=== PATIENT | female | born 1950 | race Caucasian/White ===

== ENCOUNTER → 2018-05-07 08:51 | Outpatient (CLI) | payer MEDICARE, OTHER, SELFPAY ==
[2018-05-07 09:00] LABS: Bacteria Urine None Seen; RBC Urine None Seen (0-5/HPF); WBC Urine None Seen (0-5/HPF)
[2018-05-07 10:02] LABS: Add Manual Diff / Slide Review NO; Basophils Absolute Auto 100 /uL (0-100); Basophils Percent Auto 1.1 % (0-2); Eosinophils Absolute Auto 200 /uL (0-450); Eosinophils Percent Auto 3.5 % (2-4); Hematocrit 39.4 % (36-46); Hemoglobin 12.8 g/dL (12.0-16.0); Lymphocytes Absolute Auto 1500 /uL (1100-4500); Lymphocytes Percent Auto 24.2 % (25-40); Mean Corpuscular HGB Conc 32.5 % (30-36); Mean Corpuscular Hemoglobin 29.1 PG (26-34); Mean Corpuscular Volume 89.6 fL (80-100); Monocytes Absolute Auto 700 /uL (0-900); Monocytes Percent Auto 10.9 % (3-14); Neutrophils Absolute Auto 3700 /uL (1500-7000); Neutrophils Percent Auto 60.3 % (50-75); Platelet Count 266 X10^3/uL (150-400); Red Cell Distribution Width 13.4 % (11.6-14.8); White Blood Cell Count 6.1 X10^3/uL (4.5-11.0)
[2018-05-07 10:18] LABS: Alanine Aminotransferase 28 IU/L (9-52); Albumin 4.5 g/dL (3.5-5.0); Albumin Globulin Ratio 1.5 (1.0-2.8); Alkaline Phosphatase 70 U/L (38-126); Aspartate Aminotransferase 26 IU/L (14-36); BUN Creatinine Ratio 28.3 (6-22); Bilirubin Total 0.4 mg/dL (0.2-1.3); Blood Urea Nitrogen 17 mg/dL (7-17); Calcium 9.7 mg/dL (8.4-10.2); Carbon Dioxide 31 mmol/L (22-32); Chloride 98 mmol/L (98-107); Estimated Glomerular Filt Rate > 60.0 mL/min (>60); Glucose 91 mg/dL (80-110); HEMOLYSIS < 15 (0-50); Potassium 5.1 mmol/L (3.4-5.1); Sodium 137 mmol/L (137-145); Total Protein 7.5 g/dL (6.3-8.2)
[2018-05-07 10:20] LABS: C-Reactive Protein Quant < 0.5 mg/dL (<1.0)
[2018-05-07 10:22] LABS: Appearance Urine UA CLEAR; Bilirubin Urine UA NEGATIVE (NEGATIVE); Color Urine UA YELLOW; Glucose Urine UA NEGATIVE (Negative); Ketones Urine UA NEGATIVE (NEGATIVE); Leukocyte Esterase Urine UA NEGATIVE (NEGATIVE); Nitrite Urine UA NEGATIVE (Negative); Occult Blood Urine UA NEGATIVE (Negative); Protein Urine UA NEGATIVE (Negative); Specific Gravity Urine UA <=1.005 (1.000-1.035); Urobilinogen Urine UA 0.2 E.U./dL (0.2); pH Urine UA 6.5 (4.5-8.0)
[2018-05-07 11:14] LABS: Culture Indicated Urine Cult Not Indicated
[2018-05-07 11:20] LABS: Folate > 20.0 ng/mL (2.76-20.0); Vitamin B12 713 pg/mL (239-931)
== END ==
PROVIDERS: PCP Family Medicine; Visit Provider Family Medicine
DX: K50.90 Crohn's disease, unspecified, without complications (principal)
CPT/HCPCS: 36415; 80053; 81001; 82607; 82746; 85025; 86140

== ENCOUNTER → 2019-04-26 08:59 | Outpatient (CLI) | payer MEDICARE, OTHER, SELFPAY ==
[2019-04-26 09:59] LABS: Add Manual Diff / Slide Review NO; Basophils Absolute Auto 100 /uL (0-100); Basophils Percent Auto 1.2 % (0-2); Eosinophils Absolute Auto 100 /uL (0-450); Eosinophils Percent Auto 1.2 % (2-4); Hematocrit 39.3 % (36-46); Hemoglobin 13.3 g/dL (12.0-16.0); Lymphocytes Absolute Auto 1500 /uL (1100-4500); Mean Corpuscular HGB Conc 33.9 % (30-36); Mean Corpuscular Hemoglobin 30.3 PG (26-34); Mean Corpuscular Volume 89.6 fL (80-100); Monocytes Absolute Auto 500 /uL (0-900); Monocytes Percent Auto 7.9 % (3-14); Neutrophils Absolute Auto 4400 /uL (1500-7000); Neutrophils Percent Auto 66.7 % (50-75); Platelet Count 314 X10^3/uL (150-400); Red Blood Cell Count 4.39 X10^6/uL (4.0-5.2); Red Cell Distribution Width 13.3 % (11.6-14.8); White Blood Cell Count 6.6 X10^3/uL (4.5-11.0)
[2019-04-26 10:13] LABS: Alanine Aminotransferase 22 IU/L (<35); Albumin 5.1 g/dL (3.5-5.0); Albumin Globulin Ratio 1.8 (1.0-2.8); Alkaline Phosphatase 82 U/L (38-126); Aspartate Aminotransferase 31 IU/L (14-36); BUN Creatinine Ratio 26.7 (6-22); Bilirubin Total 0.6 mg/dL (0.2-1.3); Blood Urea Nitrogen 16 mg/dL (7-17); C-Reactive Protein Quant 0.7 mg/dL (<1.0); Calcium 10.2 mg/dL (8.4-10.2); Carbon Dioxide 28 mmol/L (22-32); Chloride 96 mmol/L (98-107); Estimated Glomerular Filt Rate > 60.0 mL/min (>60); Globulin 2.9 g/dL (1.7-4.1); Glucose 106 mg/dL (80-110); HEMOLYSIS < 15 (0-50); Potassium 4.3 mmol/L (3.4-5.1); Sodium 137 mmol/L (137-145)
[2019-04-26 10:53] LABS: Hep C Virus Ab w/Reflex Quant NEGATIVE s/c (NEGATIVE)
[2019-04-26 11:16] LABS: Folate > 20.0 ng/mL (2.76-20.0); Vitamin B12 912 pg/mL (239-931)
== END ==
PROVIDERS: PCP Family Medicine; Visit Provider Internal Medicine Gastroenterology
DX: K50.80 Crohn's disease of both small and large intestine without complications (principal); K22.70 Barrett's esophagus without dysplasia
CPT/HCPCS: 36415; 80053; 82607; 82746; 85025; 86140; 86803

== ENCOUNTER → 2020-01-29 14:04 | Outpatient (CLI) | payer MEDICARE, OTHER, SELFPAY ==
[2020-01-30 14:49] LABS: COVID19 Sendout Not Detected (Not Detect)
== END ==
PROVIDERS: PCP Family Medicine; Visit Provider Physician Assistant
DX: Z01.812 Encounter for preprocedural laboratory examination (principal)
CPT/HCPCS: 87635

== ENCOUNTER 2020-02-01 12:55 | Day surgery (SDC) | payer MEDICARE, OTHER, SELFPAY ==
--- NOTE | 2020-02-01 | PATH_ITS ---
[facility] Accession Number: [id number] . 01 Material submitted: . PART A: gastrointestinal site - GASTRIC POLYP PART B: esophagus - ESOPHAGITIS PART C: ileum - TERMINAL ILEUM PART D: colon - CECUM PART E: colon - CECAL POLYP PART F: colon - ASCENDING COLON PART G: colon - TRANSVERSE COLON PART H: colon - LEFT COLON PART I: rectum - RECTAL . 01 Clinical history: . B: RULE OUT SUZAN . 02 Diagnosis: A. Gastric Polyp, Biopsy: Consistent with fundic gland polyp with mild chronic inflammation. Negative for Helicobacter organisms by immunohistochemistry. Negative for intestinal metaplasia. Negative for dysplasia or malignancy. Additional step sections examined. . B. Esophagus, Biopsy: Suzan esophagitis. Fungal forms morphologically consistent with Suzan species seen on H/E stain. Negative for dysplasia or malignancy. . C. Terminal Ileum, Biopsy: Small bowel mucosa with no diagnostic abnormality. Negative for active inflammation, granulomata, dysplasia or malignancy. . D. Cecum, Biopsy: Colonic mucosa with no significant diagnostic abnormality. Negative for active inflammation, granulomas, dysplasia, and malignancy. . E. Cecum, Polyp: Small serrated lesion, consistent with early sessile serrated adenoma. . F-I: Ascending, Transverse, and Left Colon, Rectum, Biopsies: Colonic mucosa with no significant diagnostic abnormality. Negative for active inflammation, granulomas, dysplasia, and malignancy. . . . . . . [facility] 02/06/2020 1544 Local . 02 Electronically signed: . Romel Pat MD, PhD, Pathologist NPI- [id number] . 01 Gross description: . A. Received in formalin, labeled gastric polyp, and consists of two carpenter fragments of soft tissue measuring 0.2 x 0.2 x 0.2 cm in aggregate. The specimen is entirely submitted in cassette A1. B. Received in formalin, labeled esophagitis, and consists of three carpenter-white fragments of soft tissue measuring 0.4 x 0.3 x 0.2 cm in aggregate. The specimen is entirely submitted in cassette B1. C. Received in formalin, labeled terminal ileum, and consists of three carpenter fragments of soft tissue measuring 0.4 x 0.3 x 0.2 cm in aggregate. The specimen is entirely submitted in cassette C1. D. Received in formalin, labeled cecum, and consists of four carpenter fragments of soft tissue measuring 0.6 x 0.5 x 0.2 cm in aggregate. The specimen is entirely submitted in cassette D1. E. Received in formalin, labeled cecal polyp, and consists of a 0.6 x 0.3 x 0.2 cm carpenter fragment of soft tissue, which is entirely submitted in cassette E1. F. Received in formalin, labeled ascending colon, and consists of five carpenter fragments of soft tissue measuring 0.6 x 0.5 x 0.2 cm in aggregate. The specimen is entirely submitted in cassette F1. G. Received in formalin, labeled transverse colon, and consists of multiple carpenter fragments of soft tissue measuring 1.0 x 0.8 x 0.2 cm in aggregate. The specimen is entirely submitted in cassette G1. H. Received in formalin, labeled left colon, and consists of multiple carpenter-pink fragments of soft tissue measuring 1.5 x 1.0 x 0.2 cm in aggregate. The specimen is entirely submitted in cassette H1. I. Received in formalin, labeled rectal, and consists of four carpenter fragments of soft tissue measuring 1.2 x 1.0 x 0.2 cm in aggregate. The specimen is entirely submitted in cassette I1. (EA:[id number]) /MRV 02/02/2020 [facility] Local . 02 Microscopic: . A. An immunohistochemical stain was performed to evaluate for Helicobacter organisms and is negative. The control stain showed appropriate reactivity. . * This test was developed and its performance characteristics determined by [facility]. It has not been cleared or approved by the U.S. Food and Drug Administration. The FDA has determined that such clearance or approval is not necessary. This test is used for clinical purposes. It should not be regarded as investigational or for research. . 02 Pathologist provided ICD-10: K31.7, B37.81, K29.70, D12.0, R19.4 . 02 CPT . 433391, 152105, 925912, 742324, 662938, 489622, 427733, 398257, 210245, D86980 Performed at: 01 [facility] [address] [address] [id number] MD Kenn Scales MD Phone: [phone] Performed at: 02 [facility] [place] [address] [place] [id number] MD Stacey Barrera MD Phone: [phone]
--- NOTE | 2020-02-01 09:00 | PM.HP.1 ---
History of Present Illness History of Present Illness Date Patient Seen: 02/01/20 Chief complaint: SDC Narrative: 69-year-old female with a history of Crohn's ileocolitis and Lynch's esophagus who I had last seen on 01/25/2020 who is due for colon cancer surveillance and Lynch's esophagus surveillance Patient History Surgical History (Updated 08/18/17 @ 05:45 by Conversion Provider) History of carpal tunnel repair History of carpal tunnel repair Family & Social History Family History (Updated 10/30/14 @ 00:00 by Conversion Provider) Brother Age: 71 Hypertension Brother Age: 69 Ulcerative colitis Mother Hypertension Meds Home Medications and Allergies Home Medications Medication Instructions Recorded Confirmed Type lisinopril-hydrochlorothiazide 1 tab PO QDAY #90 tab 05/09/16 02/01/20 Rx sulfasalazine 1 g PO BID 02/01/20 02/01/20 History Allergies Allergy/AdvReac Type Severity Reaction Status Date / Time Penicillins [PENICILLINS] Allergy Severe rash Unverified 07/29/17 12:08 phenobarbital [PHENOBARBITAL] Allergy Severe rash all Unverified 07/29/17 12:08 over torso phenytoin [PHENYTOIN] Allergy Severe rash Unverified 07/29/17 12:08 clindamycin [CLINDAMYCIN] Allergy Mild rash Unverified 07/29/17 12:08 iodine Allergy Mild IV Unverified 07/29/17 12:08 CONTRAST - SOB W/ CT Exam Narrative Exam Narrative: General: Patient is well developed, not in apparent distress Cardiovascular: Regular rate and rhythm, no murmurs, rubs, or gallops; no evidence of edema; no palpable abdominal aortic aneurysm Gastrointestinal: Normoactive bowel sounds, soft, nontender, nondistended, no rebound tenderness, no hepatosplenomegaly, no evidence of hernia Assessment & Plan Assessment & Plan narrative: 69-year-old female with a history of Lynch's esophagus and Crohn's ileocolitis who appears currently in remission there is here for Lynch's esophagus surveillance and colon cancer surveillance Regarding the procedure(s), the risks and potential complications, benefits, and alternatives (including not doing the procedure) were discussed with the patient. The risks include but are not limited to bleeding, splenic injury, infection, perforation which may require surgical intervention, missed lesions, and adverse reactions to sedative medicines. After a question and answer period, the patient agreed to proceed with the procedure(s) and gives informed consent.
[2020-02-01 13:12] VITALS: BP 185/93; PULSE 96; RESP 16; TEMP 36.7; O2SAT 98; BMI 25.8
[2020-02-01] MEDS: SODIUM CHLORIDE 0.9% 1,000 ML 70 ML IV (13:28)
--- NOTE | 2020-02-01 14:04 | P.OP.ENDO_ITS ---
Operative Date/Time/Diagnoses Date of procedure: 02/01/20 Procedure Notes Procedure in detail: Surgeon: Jose G Mujica MD Procedure: Esophagogastroduodenoscopy with biopsy and colonoscopy with biopsy Preoperative diagnosis: Lynch's esophagus surveillance, colon cancer surveillance exam due to longstanding history history of Crohn's ileocolitis Postoperative diagnosis: Probable Suzan esophagitis, LA grade D reflux esophagitis, small hiatal hernia; cecal polyp, no evidence of active Crohn's disease; internal hemorrhoids Medications: Conscious sedation using 8 mg IV of Midazolam and 200 mcg IV of Fentanyl (total for both procedures) Preanesthesia Assessment An H and P was performed/updated and the Px?s ASA class is 2. The procedure was discussed in detail with the patient. The potential risks and complications including infection, bleeding, missed lesions, perforation, need for surgery in case of perforation, prolonged hospital stay, and were explained. A brief question and answer period was allotted and once all questions were answered, informed consent was obtained. The patient was brought back to the procedure room and placed on standard monitoring. The patient?s vital signs were monitored continuously throughout the entire procedure. Prior to starting, a timeout was performed to confirm the patient?s identity, allergies, medications, and procedure. Procedure in detail The patient was placed in left lateral decubitus position and a bite block was inserted. The tip of the upper endoscope was placed into the mouth and advanced without difficulty under direct visualization into the esophagus. Esophagus: There was note of multiple whitish plaques in the upper and middle esophagus which appeared consistent with Suzan esophagitis. Biopsies were taken with minimal bleeding. There was also note of LA grade D reflux esophagitis, no biopsies were taken at this point. Stomach: A small hiatal hernia was seen on retroflexion; there were multiple small sessile polyps in the body. Bulk Mail Technician biopsies were taken of 1 polyp with minimal bleeding Duodenum: The visualized small bowel was normal to the 2nd portion of the duodenum After the upper endoscopy, preparations were made for the colonoscopy. Once adequate sedation was obtained a ROBIN was performed. The digital rectal examination did not reveal any palpable lesions. The tip of the colonoscope was placed in the anal canal and advanced without difficulty all the way to the cecum which was identified by the appendiceal orifice and the ileocecal valve. The terminal ileum was intubated to 55 cm from the ileocecal valve and mucosa appeared normal. Biopsies were taken for histology with minimal bleeding. The colonoscope was then brought back to the cecum and careful irrigation of all chester of the colon was performed. The cecum appeared deformed which was likely due to sequelae of healing and scarring of Crohn's disease. In the cecum, there was note of a 2 mm sessile polyp which was removed by means of cold Jumbo forceps. Resection and retrieval were complete with minimal bleeding. The entirety of the colonic mucosa showed no evidence of colitis. Bulk Mail Technician biopsies were taken throughout the colon to check for disease activity. After extensive evaluation there was no evidence of nodularity or lesions suspicious for dysplasia. Retroflexion was performed in the rectum which revealed grade 1 internal hemorrhoids The patient tolerated the procedure well and will be brought back to the recovery area to be discharged once criteria are met. The prep was judged to be good and adequate to identify polyps less than 5 mm. The withdrawal time was 15 minutes. The total physician intraservice time was 41 minutes. Complications There were no complications and estimated blood loss was minimal. Recommendations Resume previous diet Anti-reflux measures at all times Continue outpatient medications Omeprazole 20 mg twice daily (30 minutes prior to breakfast and 30 minutes prior to dinner) for 3 months Sucralfate 1 g 4 times daily for the next 1-2 months Diflucan 14 day course (200 mg on day 1 followed by 100 mg daily to complete 14 days) Follow-up pathology results Repeat upper endoscopy to check healing of esophagitis and for Lynch's biopsies in 3 months Repeat colonoscopy in 2 years for surveillance Call our office ([facility]) to schedule follow-up in 6 months, or sooner if you have active symptoms An emergency contact number was given to the patient for any complications related to the procedure
[2020-02-01] MEDS: MIDAZOLAM 5 MG/5 ML VIAL IV (14:49)
[2020-02-01 14:50] VITALS: BP 141/71; PULSE 102; RESP 14; TEMP 37.2; O2SAT 98
[2020-02-01] MEDS: fentaNYL 250 MCG/5 ML INJ IV (14:50)
[2020-02-01] MEDS: TETRACAINE/BENZOCAINE/BUTAMBEN (CETACAINE) BOTTLE 1 SPRAY TOP (14:51)
[2020-02-01 14:55] VITALS: BP 141/75; PULSE 94; RESP 20; TEMP 36.8; O2SAT 97
[2020-02-01 15:01] VITALS: BP 139/88; PULSE 90; RESP 23; TEMP 37; O2SAT 97
--- NOTE | 2020-02-01 15:11 | SUR.PHASEII ---
Pt sitting up in bed drinking juice without problems. No c/o
[2020-02-01 15:15] VITALS: BP 129/76; PULSE 82; RESP 16; TEMP 36.4; O2SAT 96
--- NOTE | 2020-02-01 15:16 | SUR.PHASEII ---
Pt wanting to rest a bit beofre trying to get up and walk.
[2020-02-01 15:48] VITALS: BP 124/78; PULSE 81; RESP 16; TEMP 36.6; O2SAT 96
--- NOTE | 2020-02-01 15:49 | SUR.PHASEII ---
Pt talking with doctor for last 10 minutes. Up and ambulating now and getting dressed, iv dcd site clear, all dc instructions given and pt verbalizes understanding. No c/o.
--- NOTE | 2020-02-01 16:09 | SUR.PHASEII ---
1600-Pt dcd via wc in stable condition with no c/o
== END 2020-02-01 16:00 | disposition home or self-care (01) ==
PROVIDERS: PCP Family Medicine; Referring Provider Internal Medicine Gastroenterology; Visit Provider Internal Medicine Gastroenterology
PROC: 0DJ08ZZ Inspection of Upper Intestinal Tract, Via Natural or Artificial Opening Endoscopic (ICD-10-PCS; CPT 43235; principal; 2020-02-01 14:00)
PROC: 0DJD8ZZ Inspection of Lower Intestinal Tract, Via Natural or Artificial Opening Endoscopic (ICD-10-PCS; CPT 45378; 2020-02-01 14:00)
DX: Z12.11 Encounter for screening for malignant neoplasm of colon (principal); K44.9 Diaphragmatic hernia without obstruction or gangrene; D12.0 Benign neoplasm of cecum; K64.0 First degree hemorrhoids; Z87.19 Personal history of other diseases of the digestive system; K21.00 Gastro-esophageal reflux disease with esophagitis, without bleeding; K31.7 Polyp of stomach and duodenum; B37.81 Candidal esophagitis; K29.50 Unspecified chronic gastritis without bleeding
CPT/HCPCS: 45380; 43239; J2250; J3010

== ENCOUNTER → 2020-04-23 13:55 | Outpatient (CLI) | payer MEDICARE, SELFPAY ==
[2020-04-23 15:50] LABS: COVID19 -Nasal RAPID Negative (Negative)
== END ==
PROVIDERS: PCP Family Medicine; Visit Provider Physician Assistant
DX: Z01.812 Encounter for preprocedural laboratory examination (principal); Z20.822 Contact with and (suspected) exposure to COVID-19
CPT/HCPCS: 87635; C9803

== ENCOUNTER 2020-04-25 11:28 | Day surgery (SDC) | payer MEDICARE, SELFPAY ==
--- NOTE | 2020-04-25 | PATH_ITS ---
[facility] Accession Number: [id number] . 01 Material submitted: . PART A: body - 34 CM PART B: body - 35 CM . 01 Clinical history: . HISTORY OF HUMPHRIES'S . 02 Diagnosis: A. Esophagus, 34 cm, Biopsy: Squamocolumnar junctional mucosa with mild active inflammation and invasive pseudohyphae, consistent with Suzan esophagitis. Negative for intestinal metaplasia. Negative for dysplasia and malignancy. . B. Esophagus, 35 cm, Biopsy: Squamocolumnar junctional mucosa with specialized intestinal metaplasia, consistent with Humphries's esophagus. Negative for dysplasia and malignancy. MRV 05/01/2020 1306 Local . 02 Electronically signed: . Stacey Barrera MD, Pathologist NPI- [id number] . 01 Gross description: . Part A: 34 CM: Received in formalin are 2 fragment(s) of carpenter, soft tissue measuring 0.1 x 0.1 x 0.1 cm to 0.2 x 0.1 x 0.1 cm submitted entirely in 1 cassette(s) Part B: 35 CM: Received in formalin are 3 fragment(s) of carpenter, soft tissue measuring 0.1 x 0.1 x 0.1 cm to 0.3 x 0.2 x 0.2 cm submitted entirely in 1 cassette(s) /MALATHI 04/26/2020 1850 Local . 02 Microscopic: . A. An AB/PAS stain was performed to evaluate for intestinal metaplasia and fungal organisms and is negative for intestinal metaplasia. The PAS stain highlights rare invasive pseudohyphae consistent with Suzan species. The control stain showed appropriate reactivity. . B. An AB/PAS stain was performed to evaluate for intestinal metaplasia and fungal organisms. The stain highlights focal intestinal metaplasia. The PAS portion of the stain is negative for fungal organisms. The control stain showed appropriate reactivity. . 02 Pathologist provided ICD-10: K22.70, B37.81 . 02 CPT . 389794, 204049, 652152, 091347 Performed at: 01 [facility] [address] [id number] MD Kenn Scales MD Phone: [phone] Performed at: 02 [facility] [address] [place] [id number] MD Stacey Barrera MD Phone: [phone]
--- NOTE | 2020-04-25 08:58 | PM.HP.1 ---
History of Present Illness History of Present Illness Date Patient Seen: 04/25/20 Chief complaint: SDC Narrative: 70-year-old female with a history of Suzan/reflux esophagitis on EGD 02/01/2020 who is here for repeat evaluation to check healing Patient History Medical History (Updated 04/25/20 @ 11:43 by Yenifer Holland RN) Barretts esophagus Crohn's ileocolitis Hiatal hernia Surgical History (Updated 04/25/20 @ 11:43 by Yenifer Holland RN) History of carpal tunnel repair History of carpal tunnel repair History of colonoscopy History of esophagogastroduodenoscopy (EGD) Family & Social History Family History (Updated 10/30/14 @ 00:00 by Conversion Provider) Brother Age: 71 Hypertension Brother Age: 69 Ulcerative colitis Mother Hypertension Social History: household members spouse Tobacco & Substance use: Smoking Status Never smoker alcohol intake current alcohol intake frequency a few times a month Substance Use Type does not use Meds Home Medications and Allergies Home Medications Medication Instructions Recorded Confirmed Type lisinopril-hydrochlorothiazide 1 tab PO QDAY #90 tab 05/09/16 02/01/20 Rx sulfasalazine 1 g PO BID 02/01/20 02/01/20 History aspirin 81 mg PO DAILY 04/25/20 04/25/20 History atorvastatin 20 mg PO DAILY 04/25/20 04/25/20 History Allergies Allergy/AdvReac Type Severity Reaction Status Date / Time Penicillins [PENICILLINS] Allergy Severe rash Verified 04/25/20 11:54 phenobarbital [PHENOBARBITAL] Allergy Severe rash all Verified 04/25/20 11:54 over torso phenytoin [PHENYTOIN] Allergy Severe rash Verified 04/25/20 11:54 clindamycin [CLINDAMYCIN] Allergy Mild rash Verified 04/25/20 11:54 iodine Allergy Mild IV Verified 04/25/20 11:54 CONTRAST - SOB W/ CT Exam Narrative Exam Narrative: General: Patient is well developed, not in apparent distress Cardiovascular: Regular rate and rhythm, no murmurs, rubs, or gallops; no evidence of edema; no palpable abdominal aortic aneurysm Gastrointestinal: Normoactive bowel sounds, soft, nontender, nondistended, no rebound tenderness, no hepatosplenomegaly, no evidence of hernia Assessment & Plan Assessment & Plan narrative: 62-year-old female with Suzan esophagitis and reflux esophagitis diagnosed 02/01/2020 here for re-evaluation Regarding the procedure(s), the risks and potential complications, benefits, and alternatives (including not doing the procedure) were discussed with the patient. The risks include but are not limited to bleeding, splenic injury, infection, perforation which may require surgical intervention, missed lesions, and adverse reactions to sedative medicines. After a question and answer period, the patient agreed to proceed with the procedure(s) and gives informed consent.
[2020-04-25] MEDS: SODIUM CHLORIDE 0.9% 1,000 ML 70 ML IV (11:50)
[2020-04-25 11:55] VITALS: BMI 25.8
--- NOTE | 2020-04-25 12:09 | P.OP.ENDO_ITS ---
Operative Date/Time/Diagnoses Date of procedure: 04/25/20 Procedure Notes Procedure in detail: Surgeon: Jose G Mujica MD Procedure: Esophagogastroduodenoscopy with Lynch's esophagus biopsies Preoperative diagnosis: History of Candidal and reflux esophagitis; history of Lynch's esophagus Postoperative diagnosis: Short-segment Lynch's esophagus; small hiatal hernia Medications: Lidocaine gargle, Conscious sedation using 4 mg IV of Midazolam and 100 mcg IV of Fentanyl Preanesthesia Assessment An H and P was performed/updated and the Px?s ASA class is 2. The procedure was discussed in detail with the patient. The potential risks and complications including infection, bleeding, missed lesions, perforation, need for surgery in case of perforation, prolonged hospital stay, and were explained. A brief question and answer period was allotted and once all questions were answered, informed consent was obtained. The patient was brought back to the procedure room and placed on standard monitoring. The patient?s vital signs were monitored continuously throughout the entire procedure. Prior to starting, a timeout was performed to confirm the patient?s identity, allergies, medications, and procedure. Procedure in detail The patient was placed in left lateral decubitus position and a bite block was inserted. The tip of the upper endoscope was placed into the mouth and advanced without difficulty under direct visualization into the esophagus. Esophagus: No further evidence of reflux esophagitis. Lynch's esophagus C0M2, wide tongue from 34 cm from the incisors to 36 cm from the incisors; gastric folds at 36 cm Stomach: A 2 cm hiatal hernia was visualized on retroflexion. No further lesions were seen within the stomach Duodenum: Normal visualized duodenum The patient tolerated the procedure well and will be brought back to the [facility] to be discharged once criteria are met. The total physician intraservice time was 10 minutes. Complications There were no complications and estimated blood loss was minimal. Recommendations: Resume previous diet Continue outPx medications Omeprazole 20 mg as needed for any reflux symptoms Follow up pathology results Repeat EGD in 3 years for Lynch's surveillance Follow-up with me in 6 months An emergency contact number was given to the patient for any complications related to the procedure
[2020-04-25] MEDS: fentaNYL 250 MCG/5 ML INJ IV (12:35)
[2020-04-25] MEDS: MIDAZOLAM 5 MG/5 ML VIAL IV (12:37)
[2020-04-25] MEDS: LIDOCAINE 4% SOLN 50 ML 20 ML TOP (12:48)
[2020-04-25 12:50] VITALS: BP 119/68; PULSE 76; RESP 14; TEMP 36; O2SAT 98
[2020-04-25 12:55] VITALS: BP 116/60; PULSE 78; RESP 16; O2SAT 98
[2020-04-25 13:00] VITALS: BP 113/62; PULSE 79; RESP 18; O2SAT 97
[2020-04-25 13:05] VITALS: BP 119/71; PULSE 80; RESP 16; TEMP 36.5; O2SAT 97
== END 2020-04-25 13:22 | disposition home or self-care (01) ==
PROVIDERS: PCP Family Medicine; Referring Provider Internal Medicine Gastroenterology; Visit Provider Internal Medicine Gastroenterology
PROC: 0DJ08ZZ Inspection of Upper Intestinal Tract, Via Natural or Artificial Opening Endoscopic (ICD-10-PCS; CPT 43235; principal; 2020-04-25 12:30)
DX: K22.70 Barrett's esophagus without dysplasia (principal); K44.9 Diaphragmatic hernia without obstruction or gangrene
CPT/HCPCS: 43239; J2250; J3010

== ENCOUNTER → 2020-07-10 08:56 | Outpatient (CLI) | payer MEDICARE, SELFPAY ==
--- NOTE | 2020-07-10 08:58 | DI.RAD.S_ITS ---
PROCEDURE: XR DEXA AXIAL SKELETON INDICATIONS: Essential (primary) hypertension,Crohn's disease, COMPARISON: None. FINDINGS: This blank DEXA report has been sent in error by the PACS system. The correct and complete report will be forthcoming in 1-2 days. Thank you for your patience and understanding. Dictated by: Eliane Gibbons MD, PhD on 07/10/2020 at 16:54 Approved by: Eliane Gibbons MD, PhD on 07/10/2020 at 16:54
--- NOTE | 2020-07-10 08:58 | DI.ECHO.S_ITS ---
[place] [facility]---------+ [facility] +---------+ : : [address] : : : : [id number] : : : : Phone: [phone] Echocardiogram Report + + :Name: QUIANA GARCIA Study Date: 07/10/2020 Height: 66.5 in: :[facility] ReadingLocation: Weight: 160 lb : : Gender: Female BSA: 1.8 m2 : :: 1950 Age: 70 yrs BP: 149/86 mmHg: :Reason For Study: HYPERTENSION, CROHNS DISEASE : :Ordering Physician: DRU, : :HALEY Sherwood Performed By: Luna Mcdonough : :Referring: HALEY GONSALES : + + Interpretation Summary The ejection fraction is estimated to be 60-65%. 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 There is no Doppler evidence for an interatrial shunt. There is no significant valvular heart disease. Procedure: A two-dimensional transthoracic echocardiogram with color flow and Doppler was performed. The study quality was technically adequate. There is no prior echocardiogram noted for this patient. The patient was in sinus rhythm with heart rates between 71-95 bpm during the exam. Left Ventricle: The left ventricle is normal in size and wall thickness. Proximal septal thickening is noted. The ejection fraction is estimated to be 60-65%. Left ventricular wall motion is normal. Diastolic parameters suggest probable normal left ventricular diastolic function and normal filling pressures. Right Ventricle: The right ventricle is normal in size and function. Atria: The left atrium is mildly dilated. Right atrial size is normal. 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 There is no Doppler evidence for an interatrial shunt. Mitral Valve: The mitral valve is normal in structure and function. There is trace mitral regurgitation. Aortic Valve: The aortic valve is not well visualized. There is no aortic valve stenosis. No aortic regurgitation is present. Tricuspid Valve: The tricuspid valve is normal in structure and function. No tricuspid regurgitation. Pulmonary artery pressures cannot be estimated because of the lack of a measurable TR jet velocity but the IVC suggests a CVP of around 3 mmHg. Pulmonic Valve: The pulmonic valve is not well visualized. There is no pulmonic valvular regurgitation. Great Vessels: The aortic root is normal size. The dimensions of the ascending aorta are normal. The IVC is of normal diameter and collapses greater than 50% with a sniff. This suggests a low right atrial pressure of 3 mm Hg. Pericardium/ Pleura There is no pericardial effusion. There is no pleural effusion. MMode/2D Measurements & Calculations LVIDd: 4.7 cm LVOT diam: 2.2 cm LVIDs: 3.2 cm Ao root diam: 2.7 cm FS: 31.3 % asc Aorta Diam: 3.2 cm EPSS: 1.2 cm Ao Arch Diam (Prox Trans): 2.8 cm IVSd: 0.89 cm LVPWd: 0.88 cm LV ilcea. diameter/BSA (cm/m^2): 2.5 LV sys. diameter/BSA (cm/m^2): 1.8 LA A2 area: 20.4 cm2 RA long axis: 5.6 cm LA A4 area: 19.7 cm2 RA area: 14.4 cm2 LA length (vol): 5.5 cm RA vol: 31.7 ml LA vol: 62.1 ml RA : 17.3 ml/m2 LA vol index: 34.0 ml/m2 IVC diam: 1.5 cm RVD1 (basal): 2.5 cm TAPSE: 2.5 cm Doppler Measurements & Calculations Ao V2 max: 110.2 cm/sec LVOT Max Matheus: 99.6 cm/sec Ao V2 mean: 79.0 cm/sec LV V1 max P.0 mmHg Ao max P.9 mmHg LV V1 VTI: 19.8 cm Ao mean P.7 mmHg ESTEFANIA(I,D): 3.5 cm2 Ao V2 VTI: 22.3 cm ESTEFANIA(V,D): 3.5 cm2 sev ratio: 0.89 ESTEFANIA indexed to BSA (cm^2/m^2): 1.9 MV E max matheus: 72.3 cm/sec PA pr(Accel): 17.3 mmHg MV A max matheus: 84.0 cm/sec MV E/A: 0.86 Med Peak E' Matehus: 9.4 cm/sec E/E' med: 7.7 Lat Peak E' Matheus: 12.9 cm/sec E/E' lat: 5.6 E/e' average: 6.6 MV dec time: 0.16 sec SV(REGINA): 77.2 ml Reading Physician:02:35 PM
== END ==
PROVIDERS: PCP Family Medicine; Referring Provider Family Medicine; Visit Provider Family Medicine
DX: Q21.1 Atrial septal defect (principal); I10 Essential (primary) hypertension; I51.89 Other ill-defined heart diseases; K50.90 Crohn's disease, unspecified, without complications; M85.851 Other specified disorders of bone density and structure, right thigh; Z78.0 Asymptomatic menopausal state
CPT/HCPCS: 77080; 93306

== ENCOUNTER → 2021-03-29 08:58 | Outpatient (CLI) | payer MEDICARE, SELFPAY ==
[2021-03-29 22:44] LABS: COVID19 - ORCAS (NP or Nasal) Negative (Negative)
== END ==
PROVIDERS: PCP Family Medicine; Visit Provider Physician Assistant Medical
DX: Z01.812 Encounter for preprocedural laboratory examination (principal); Z20.822 Contact with and (suspected) exposure to COVID-19
CPT/HCPCS: C9803; U0003

== ENCOUNTER 2021-04-01 10:42 | Day surgery (SDC) | payer MEDICARE, SELFPAY ==
[2021-03-25 08:30] VITALS: BMI 26.6
[2021-04-01] VITALS (14 sets, daily range): BP systolic 117–145; BP diastolic 41–88; PULSE 80–103; RESP 15–18; TEMP 36.4–37.3; O2SAT 95–100; BMI 26.6
--- NOTE | 2021-04-01 06:44 | DI.RAD.S_ITS ---
PROCEDURE: XR KNEE RT 1TO2V INDICATIONS: postop prosthesis placement TECHNIQUE: 2 view(s) of the knee acquired. COMPARISON: None. FINDINGS: Bones: Patient is status post knee joint arthroplasty. Hardware components are in expected positions. Visualized bony structures are intact. Soft tissues: Overlying postoperative changes are noted. IMPRESSION: Expected appearance of the knee status post revision arthroplasty. Dictated by: Galileo Sood M.D. on 04/01/2021 at 16:02 Approved by: Galileo Sood M.D. on 04/01/2021 at 16:02
[2021-04-01] MEDS: PREGABALIN 75 MG CAPSULE PO (11:11)
[2021-04-01] MEDS: ACETAMINOPHEN 325 MG TABLET 975 MG PO (11:11)
[2021-04-01] MEDS: LACTATED RINGERS 1,000 ML 42 ML IV ×2 (11:14→14:06)
--- NOTE | 2021-04-01 12:22 | PM.PREOP ---
Pre-operative Note COVID-19 COVID-19 status: Negative Result date/Date tested (Pos, Neg/Pending): 03/29/21 Interval Note History & Physical reviewed/Exam performed by Physician: Yes Changes to H&P: No
--- NOTE | 2021-04-01 12:31 | SUR.OPER ---
Supine on padded OR bed. Pillow under head, arms secured on padded armboards <90 degree abduction. Safety belt across torso. Non-operative leg secured with tape over blanket over lower leg. Operative leg secured in DeMayo/Filiberto/Nathe positioner. Foam padded brace at thigh of operative leg.
--- NOTE | 2021-04-01 13:12 | P.OP_ITS ---
Operative Date/Time/Diagnoses Date of procedure: 04/01/21 Time of procedure: 15:00 Pre-op diagnosis: Right knee osteoarthritis Post-op diagnosis: same Procedure & Clinicians Procedure: Right total knee replacement Same procedure as scheduled: Yes Indications: The patient has had progressively worsening right knee pain with radiographic changes consistent with arthritis. Non-operative management has failed and the patient has requested total knee replacement. The risks, benefits and alternatives to surgery were discussed with the patient prior to proceeding. Risks discussed included, but were not limited to, failure to relieve pain, stiffness, infection, nerve damage, deep venous thrombosis, pulmonary embolism, stroke, coma, heart attack, permanent paralysis and , as well as the potential need for eventual revision of the prosthetic. Surgeon: Julio Wells Security Sme: Casper Pearson Click Yes if Unassisted: No Anesthesia Type: General, Sedation, Peripheral nerve block and Local Operative Notes Closure Type: primary Specimen(s): none sent Prosthetic devices, grafts, tissues, transplants, or devices: Implants used in this procedure were manufactured by the [employer] and included the BCS II Journey total knee replacement with a size 5 right Oxinium femoral component, a size 4 right non porous tibial base plate, a 13 mm cross-linked polyethylene tibial insert and a 32 mm roosevelt II patellar component. Applied: implant(s) Estimated Blood Loss (mL): 25 Blood products transfused: none Tourniquet time (min): 42 Procedure in detail: The patient was seen in the pre-operative area, where the patient identified the right knee as the operative site and this was marked with my initials. The patient received pre-operative antibiotics, and was taken to the operating room and placed on the operative table in the supine position. After satisfactory anesthesia, a maritime engineer out was performed. The right leg was encircled with a tourniquet about the proximal thigh, and the leg was prepared from the toes to the tourniquet with ChloroPrep in the usual fashion and draped through sterile drapes. The leg was elevated and exsanguinated with Eschmark bandage and the tourniquet inflated to 250 mmHg pressure. The knee was approached through an approximately 18 cm incision centered over the patella and carried into the knee through a medial parapatellar arthrotomy. The anterior osteophytes and soft tissues were removed. The rotational landmarks of Rincon's line and the transepicondylar axis were marked on the femur with electrocautery, and intramedullary guide holes for the femur and tibia were created. The distal femoral cut was made in 6 degrees of valgus using the intramedullary guide at the primary cut setting. The proximal tibial cut was then made using the intramedullary guide, taking 9 mm of bone off the less involved side. The extension gap was checked and the rotation of the femoral component confirmed with the gap balancing system. The anterior, posterior and chamfer cuts were then made. The posterior osteophytes and soft tissues were then removed. The posterior capsule was injected with part of a mixture of 50 ml 0.25% Marcaine mixed with 20 ml Exparel and 4 mg of morphine for post-operative pain control. The remainder of this mixture was injected into the capsule and subcutaneous tissues during cement curing. The tibia was prepared with the rotation set by an extra medullary guide. Trial tibial and femoral components were then placed and the intercondylar notch cut through the femoral trial. Range of motion was 0-135 degrees, with good stability throughout the range. The patella was then cut to accommodate the patellar prosthetic. There was no need for a lateral release. The trials were then removed, and the femoral hole plugged with a bone plug. The bone was prepared with pulsatile lavage, and dried with a sponge. Cement was applied and the final prosthetics placed. Excess cement was removed during and after cement curing. After confirming there was no extruded cement posteriorly, the final tibial insert was placed. The knee was copiously irrigated and the tourniquet deflated. Hemostasis was obtained. The capsule was closed with interrupted # 2 polyester suture. The subcutaneous layer was closed with 3-0 Vicryl, and the skin with a running 3-0 V-Lock suture and Dermabond. An Aquacel Ag dressing was applied and the patient was taken to recovery having tolerated the procedure well. Complications: none Post-operative Condition: stable Disposition: PACU Plan for aftercare: The patient will be maintained on a standard total knee replacement protocol with weight bearing as tolerated. The patient will receive aspirin and sequential compression devices for DVT prophylaxis. The patient will be discharged home when safe for the home environment.
--- NOTE | 2021-04-01 13:19 | SUR.PREOP ---
Block start time [1312] . Monitoring initiated and maintained throughout procedure. Oxygen and medications given per anesthesiologist instructions. Patient remained stable throughout procedure, no adverse reactions noted. Block end time [1315].
[2021-04-01] MEDS: CEFAZOLIN 2 GM/20 ML SYRINGE IV (13:45)
--- NOTE | 2021-04-01 13:48 | PM.PROC.1 ---
Procedures Date/Time Date of procedure: 04/01/21 Time of procedure: 13:14 Nerve Block Time out performed: Yes Local anesthetic used: bupivacaine 0.25% Location of anesthetic used: RIGHT Nerve blocks: femoral (adductor canal) Procedure successful: Yes Patient tolerated procedure: well and no complications Complications: none Additional comments: Adductor canal nerve block performed for post-op pain control at surgeon request. Patient was positioned with IV, O2, monitors and rescue meds available. Prepped and timeout performed. Target identified with continuous ultrasound guidance. 20 mL of bupivicaine 0.25% was injected perineurally with intermittent aspiration and injection. No blood, no paresthesias, no acute complications. Ultrasound pic attained.
[2021-04-01] MEDS: TRANEXAMIC ACID 1,000 MG VIAL 1000 MG INJ ×2 (14:03→14:35)
[2021-04-01] MEDS: BUPIVACAINE LIPOSOME 266 MG/20 ML VIAL INJ (14:03)
[2021-04-01] MEDS: BUPIVACAINE 0.25% (PF) 60 ML, EPINEPHrine 0.3 MG INJ (14:05)
[2021-04-01] MEDS: MORPHINE 4 MG/ML INJ INJ (14:06)
[2021-04-01] MEDS: LACTATED RINGERS 1,000 ML 100 ML IV ×2 (15:58→23:01)
[2021-04-01] MEDS: lisinopriL 20 MG TABLET PO (17:20)
[2021-04-01] MEDS: ACETAMINOPHEN 325 MG TABLET 650 MG PO ×2 (17:59→22:43)
[2021-04-01] MEDS: ASPIRIN EC 81 MG TABLET PO (21:07)
[2021-04-01] MEDS: DOCUSATE 100 MG CAPSULE PO (21:07)
[2021-04-01] MEDS: sulfaSALAzine 500 MG TABLET 1000 MG PO (21:07)
[2021-04-01] MEDS: MELATONIN 3 MG TABLET 6 MG PO (22:45)
[2021-04-02 00:04] VITALS: BP 109/67; PULSE 70; RESP 18; TEMP 36.1; O2SAT 93
[2021-04-02 04:15] VITALS: BP 158/69; PULSE 76; RESP 18; TEMP 36.1; O2SAT 97
[2021-04-02] MEDS: OXYCODONE IR 5 MG TABLET PO ×2 (06:28→11:59)
[2021-04-02 07:33] LABS: Hematocrit 34.3 % (36-46); Hemoglobin 11.5 g/dL (12.0-16.0)
[2021-04-02 07:35] VITALS: BP 142/79; PULSE 82; RESP 18; TEMP 37; O2SAT 95
--- NOTE | 2021-04-02 07:59 | PM.DS.1 ---
History of Present Illness History of Present Illness Date Patient Seen: 04/02/21 Time Patient Seen: 07:59 Chief complaint: OPB Narrative: The history and physical is contained in the chart in a previously completed note. Please refer to that note for this information. Discharge Providers Provider Date of admission: April 01, 2021 Discharge Date: 04/02/21 Primary care physician: Anibal Walton MD Consults: 04/01/21 15:31 Consult to Discharge Planning Routine Comment: Consult to Physical Therapy Evaluate & Treat Comment: Physician Instructions: postop TKA protocol Consult to Respiratory Therapy Evaluate & Treat Comment: Physician Instructions: Evaluate and treat Discharge provider: Julio Wells MD Summary Hospital Course Discharge Diagnosis: 1. Right knee osteoarthritis 2. Post hemorrhagic anemia Hospital Course: The patient was admitted to the hospital and taken directly to the operating room on April 01, 2021. She underwent a right total knee replacement without complications. On postoperative day 1 she had a mild post hemorrhagic anemia as anticipated. She was medically stable and ready for discharge. Status at Discharge Cognitive/behavioral status at discharge: oriented Functional status at discharge: uses cane/walker Overall status at discharge: patient is progressing back to baseline Time Spent with Patient Time spent: Less than 30 minutes Exam Vital Signs (past 8 hours): - 04/02/21 00:04 04/02/21 04:15 Temperature 97.0 F L 97.0 F L Pulse Rate 70 76 Respiratory Rate 18 18 Blood Pressure 109/67 158/69 H Pulse Oximetry 93 97 Oxygen Delivery Method Room Air Oxygen Flow Rate 0 Narrative Exam Narrative: Right knee wound is dressed with no drainage on the bandage. Calf is soft. Light touch and motion are intact in the right lower extremity. Objective Labs Result Diagrams: 04/02/21 07:15 Labs: Laboratory Results - last 24 hr 04/02/21 07:15 Hgb 11.5 L Hct 34.3 L PFSH Medical History (Updated 03/27/21 @ 12:31 by She Sahu RN) Barretts esophagus Candidal esophagitis Crohn's ileocolitis Diastolic dysfunction Esophagitis Hiatal hernia HLD (hyperlipidemia) PFO (patent foramen ovale) Seizure Surgical History (Updated 03/25/21 @ 09:24 by She Sahu RN) History of carpal tunnel repair History of carpal tunnel repair History of colonoscopy History of esophagogastroduodenoscopy (EGD) History of reverse total replacement of left shoulder joint History of reverse total replacement of right shoulder joint History of total left knee replacement (03/31/16) Family History (Updated 10/30/14 @ 00:00 by Conversion Provider) Brother Age: 72 Hypertension Brother Age: 70 Ulcerative colitis Mother Hypertension Social History household members: spouse Smoking Status: Never smoker alcohol intake: current Discharge Assessment & Plan Assessment and Plan Assessment: Stable postoperative day 1 except for mild post hemorrhagic anemia which should be self limited and does not require direct treatment. Plan of Treatment: Discharge to home with follow-up in 2 weeks. Discharge prescriptions have been called to her pharmacy for oxycodone and Vistaril. She has been instructed in the use of Tylenol for pain control and the use of low-dose aspirin for DVT prophylaxis. Discharge Plan Discharge Plan Patient Disposition: Home Discharge orders & Medications Discharge Orders: Discharge (Order); Ordered 04/02/21 Ordered By: Julio Wells Prescriptions: New acetaminophen 325 mg Tablet 650 mg PO TID 30 Days Qty: 180 0RF aspirin 81 mg Tablet,Delayed Release (Dr/Ec) 81 mg PO BID 42 Days Qty: 84 0RF oxycodone 5 mg Tablet 5 mg PO Q4H PRN (Reason: Pain, Moderate (4-6)) Qty: 40 0RF hydroxyzine pamoate 25 mg Capsule 25 mg PO Q6HR PRN (Reason: Nausea) Qty: 30 0RF Continued atorvastatin 20 mg Tablet 10 mg PO DAILY 0RF sulfasalazine 500 mg Tablet 1 g PO BID 0RF lisinopril 20 mg Tablet 20 mg PO QPM 0RF lisinopril-hydrochlorothiazide 20-25 mg Tablet 1 tab PO DAILY 0RF melatonin 5 mg Tablet 5 mg PO BEDTIME 0RF Follow up/Referrals: Julio Wells MD [Physician] - 2 Weeks Anibal Walton MD [Primary Care Provider] - Diet/Activity/Treatments Diet: Diet as Tolerated and Regular Activity: You may bear weight as tolerated on your right knee. Cold/Heat Therapy: You may apply ice for 15 minutes every hour as needed for pain control to the right knee. Skin/Wound/Dressing Care Report to your healthcare provider any signs of infection, such as:: chills, fever, night sweats, increased pain, unusual drainage and unusual redness Dressing: You may remove the Milton wrap 3 days after surgery and shower normally with the deeper dressing in place. Leave the deeper dressing in place until your postoperative follow-up. If the central strip of the deeper dressing becomes saturated with either water or blood, please call the office to have it evaluated. Visit Report/Discharge Packet Instructions: DI for Knee Replacement Stand Alone Forms: Surgery Discharge Discharge Data Primary Care Provider: Anibal Walton Attending Provider: Julio Wells VTE Deep Vein Thrombosis/Pulmonary Embolism Present on Admission: No
[2021-04-02 09:00] VITALS: BP 159/64
[2021-04-02] MEDS: ACETAMINOPHEN 325 MG TABLET 650 MG PO (09:00)
[2021-04-02] MEDS: ATORVASTATIN 20 MG TABLET 10 MG PO (09:00)
[2021-04-02] MEDS: lisinopriL 20 MG TABLET PO (09:00)
[2021-04-02] MEDS: DOCUSATE 100 MG CAPSULE PO (09:00)
[2021-04-02] MEDS: ASPIRIN EC 81 MG TABLET PO (09:00)
[2021-04-02] MEDS: sulfaSALAzine 500 MG TABLET 1000 MG PO (09:01)
[2021-04-02] MEDS: hydroCHLOROthiazide 25 MG TABLET PO (09:01)
[2021-04-02 09:04] VITALS: BP 159/64; PULSE 89; RESP 19; TEMP 37; O2SAT 96
--- NOTE | 2021-04-02 09:10 | PT.IIE ---
Current Diagnoses Unilateral primary osteoarthritis, right knee (04/01/21) Surgery Performed Operation Date: 04/01/21 12:30 Actual Procedures p Total Knee Arthroplasty(Right) - Julio Wells MD Surgical History (Last Updated 03/25/21 @ 09:24 by She Sahu, RN) History of carpal tunnel repair History of carpal tunnel repair Medical History (Last Updated 03/27/21 @ 12:31 by She Sahu RN) Barretts esophagus Candidal esophagitis Crohn's ileocolitis Diastolic dysfunction Esophagitis Hiatal hernia HLD (hyperlipidemia) PFO (patent foramen ovale) Seizure Physical Therapy Inpatient Evaluation/Re-Eval M1 PT/OT-IP Prior Functional Status Start: 04/02/21 12:09 Freq: NEEDED Status: Active Protocol: Document 04/02/21 09:10 AB (Rec: 04/02/21 12:29 AB [id number]) Medical Review Prior Functional Status Medical History Reviewed Yes Communication able to make needs known Mobility and Gait pt stated that she is independent with all mobilities and ambulation without AD Social History Household Members spouse Living Arrangements House Number of Floors (Floors) Two Floors Number of Stairs To Enter/Railing? 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 M2 PT-IP Current Condition Start: 04/02/21 12:09 Freq: NEEDED Status: Active Protocol: Document 04/02/21 09:10 AB (Rec: 04/02/21 12:29 AB [id number]) Physical Therapy Current Condition Current Condition Evaluation Date 04/02/21 Treatment Diagnosis s/p R TKA; difficulty in walking Onset Date 04/01/21 M3 PT-IP Subjective Start: 04/02/21 12:09 Freq: NEEDED Status: Active Protocol: Document 04/02/21 09:10 AB (Rec: 04/02/21 12:29 AB [id number]) Subjective Physical Therapy Visit Type Type Initial Evaluation Visit Start Time 09:10 Visit Stop Time 09:46 Total Visit Minutes 36 Number of GRAIN HANDLER Visits 0 Physical Therapy Visit Comments Patient Comments agreeable to do PT Therapy Pain Assessment Pain When Pain Assessed At Rest Pain Present Pain Present Pain Reported Location Right Knee Intensity 4 Scale Used Numeric (0 - 10) Pain Management Techniques Apply Cold,Elevation, Modification of Treatment,Re- positioning,Timing of Activity with Medications M4 PT-IP Mobility and Gait Start: 04/02/21 12:09 Freq: NEEDED Status: Active Protocol: Document 04/02/21 09:10 AB (Rec: 04/02/21 12:29 AB [id number]) PT-Bed Mobility Assessment Supine to Sit Supine to Sit Standby Assistance Sit to Supine Sit to Supine Standby Assistance PT-Transfer Assessment Sit to and From Stand Sit to and from Stand Standby Assistance Equipment Transfer Assistive Device Gait Belt,Front Wheeled Walker Orthotic/Prosthetic Devices or Brace: No Transfers Transfer Destination Chair Transfer Ability Level of Assist Standby Assistance,1 Person Assistance,Use of Upper Extremities Comments Mobility Comments pt just finished using toilet with nursing. PT took over. pt completed sit to stand from EOB SBA. ambulated in room using FWW initially CGA and cues for R quads activation and pt able to ambulate ~ 50 ft in room. ambulated back to bed and completed sit<>supine SBA. pt agreed to sit on chair. completed sit to stand SBA and step transfer to chair using FWW SBA. educated on HEP. positioned pt in bed. call light and table placed within reach. Gait Assessment Gait Gait Assistance Required: Standby Assistance,Contact Guard Assist Distance (Feet) 50 Able to Maintain Weight Bearing Status Yes During Gait Assistive Devices Assistive Device Gait Belt,Front Wheeled Walker Orthotic/Prosthetic Devices or Brace: No Gait Deviations General Gait Pattern Antalgic,Decreased Stride Length,Decreased Feet Clearance Factors Limiting Gait Function Factors Limiting Gait Function Decreased Activity Tolerance, Decreased Strength,Limited Range of Motion,Pain,Poor Balance,Poor Safety Awareness PT-Balance Assessment Sitting Balance and Reactions Static Sitting Balance Ability Normal Dynamic Sitting Balance Ability Normal Standing Balance and Reactions Static Standing Balance Ability Good Dynamic Standing Balance Ability Fair Device Used FWW M5 PT-IP Objective Assessments Start: 04/02/21 12:09 Freq: NEEDED Status: Active Protocol: Document 04/02/21 09:10 AB (Rec: 04/02/21 12:29 AB [id number]) Orientation Orientation/Cognition Level of Alertness Alert Orientation Name,Place,Situation Safety Awareness Understands Safety Issues Memory Description No Deficits Noted Strength Lower Extremity Strength Assessment Right Impaired Knee 4-/5 Coordination Assessment Gross Coordination Gross Coordination WNL Sensation Assessment Sensation Gross Sensation WNL Muscle Tone Muscle Tone WNL Yes M6 PT-IP Treatment Start: 04/02/21 12:09 Freq: NEEDED Status: Active Protocol: Document 04/02/21 09:10 AB (Rec: 04/02/21 12:29 AB [email or web address]) Physical Therapy Treatment Education Education Provided Precautions,Weight Bearing Status,Post-Op Packet,Safety M7 PT-IP Assessment and Plan Start: 04/02/21 12:09 Freq: NEEDED Status: Active Protocol: Document 04/02/21 09:10 AB (Rec: 04/02/21 12:29 AB [email or web address]) PT Summary Assessment and Plan Potential Rehabilitation Potential Good Status of Condition at Evaluation Stable Summary Impairments Pain,ROM,Strength,Balance, Coordination,Sensation,Tone, Cognition,Bed Mobility, Transfers,Gait,Activity Tolerance Assessment Summary pt requiring SBA with mobility using FWW and plans to go home with spouse to assist her . pt stated that she has outpt PT scheduled. Pt may go home when medically stable. Goals Bed Mobility Goal Independent Transfer Goal Independent,Front Wheeled Walker Gait Goal Independent,Front Wheel Walker Gait Distance 200 Days to Meet Goals 5 Frequency of Treatment Frequency Of Treatment Twice a Day Treatment Plan Physical Therapy Treatment Plan Bed Mobility Training,Transfer Training,Gait Training, Therapeutic Exercise,Balance Retraining,Post Op Education, Discharge Planning,Hot or Cold Pack,Neuromuscular Re-ed, Coordination Retraining,Manual Therapy Weight Bearing Status Weight Bearing Status Weight Bear as Tolerated Allowed Weight Bearing Amount (enter % RLE WBAT or #) (%) Recommendations To Nursing Amount of Assist Needed 1 Person Assist Discharge Recommendations PT Discharge Recommendations Home with Assistance, Outpatient PT Transportation Needs at Discharge Private Vehicle
--- NOTE | 2021-04-02 09:17 | CM.DANOTE ---
DCP: Case received, EMR reviewed and met with patient. Introduced self and role. Was able to obtain information regarding patient's baseline activity status prior to surgery. DCP assessment completed with information currently available. Patient is a 71 year old female who admitted yesterday morning to the care of the orthopedic team. PCP: Dr. Walton. Payer: confirmed: Medicare/AARP. Patient came to the hospital via private vehicle for a surgical procedure. She had a right total knee replacement. Patient has history of osteoarthritis of her right knee. She had also had prior left knee arthroplasty. Met with patient in her room. She was sitting up in bed having her breakfast. She is alert and oriented, pleasant. Confirmed with her that she resides on [address] in [place], with her spouse, Serg. She is independent at her baseline, has driven prior, and uses no DME. She indicated,, her spouse will be able to assist her when she goes home. She is already set up with outpatient P.T. [place] the [place]. P: Patient is to discharge home today prior to working with P.T. Olga De Guzman RN/Jacquard Loom Weaver Discharge Planning/Care Management CM Discharge Assessment Start: 04/02/21 09:16 Freq: Status: Active Protocol: Document 04/02/21 09:16 (Rec: 04/02/21 09:17 [id number]) Discharge Planning Assessment Assigned First Front Ventilator Olga De Guzman RN/Jacquard Loom Weaver Advance Directives? No History Provided By Patient,Medical Record Prior Living Arrangements House Household Members spouse Type of transporation used prior to Drives own vehicle admit Independent with ADL's Yes Is patient alert and oriented? Yes Caregiver for Another No Barriers to Discharge No Discharge Plan Home Transportation Arrangement Spouse Referrals Initiated None needed Whiteboard Updated in Patient Room with Yes name and ext. # of First Front Ventilator Review Status In Process Next Review Type Continued Stay Review Pre-Anesthesia Assessment Start: 03/25/21 08:30 Freq: Status: Active Protocol: Document 03/25/21 08:30 CAB (Rec: 03/25/21 09:53 CAB [id number]) Pre-Anesthesia Assessment Patient Information Reviewed Via Phone Assessment Assessment Completed With Patient Diagnostic Results BMP/CMP,CBC,EKG Comment Outside labs/EKG scanned, COVID screen @ [facility]/ Primary Care Provider Anibal Walton Seen Specialist in Last 12 Months Yes Specialist Seen Dredge Pumper,Prepress Proofer, Opthamologist/Community Integration Specialist, Other Primary Language Turkish Construction Administrative Assistant Required No Height 5 ft 5 in Weight 160 lb Body Mass Index (BMI) 26.6 Hearing Ability Normal Visual Assist Contacts,Glasses Dentition Type Teeth, Natural Present,Partial - Upper Barriers to Learning None Hx Anesthesia Reactions Yes: PONV s/p LT TKA 2016 Hx Family Anesthesia Reaction No Hx Malignant Hyperthermia No Hx Blood Transfusions No Hx Blood Transfusion Reaction No Anesthesia Review Requested No alcohol intake current alcohol intake frequency a few times a month Smoking Status Never smoker Substance Use Type does not use Pain Present Pain Reported Musculoskeletal Symptoms Abnormal Gait,Difficulty Walking,Joint Pain,Neck Pain History of Falling (Recent or History of No ) Patient is completely paralyzed or No completely immobile Mental Status Oriented to own ability Is patient on oxygen? No Does patient have NETTLES/SOB No Hx Sleep Apnea No CPAP/BIPAP use not prescribed Currently Taking a Beta Tyrese No Hx Chest Pain No Hx SOB No Hx Syncope or Dizziness No Anti-Coagulant Therapy No Has a Dredge Pumper Yes: Dr. Barba last visit Cardiac Testing Echo @ [facility] 07/10/20 Hx Pacemaker/ICD No Pacemaker Rep Required? No Comment Cardiac records scanned Diet Type At Home Regular dysphagia No Urinary Catheter Present No Hx Urinary Self Catheterization No Diabetes No HgbA1C 5.0 Date 02/28/21 Patient No Lactating No Hx Drug Resistant Organism No Presence of External or Internal Medical Yes: [place] TSA, L TKA Devices Have you had any close contact with No someone diagnosed with COVID-19? Received a COVID vaccine? Yes: + Booster Received all doses? Yes Marital Status Lives With spouse Prior Living Arrangements House Number of Floors (Floors) Two Floors Support System Spouse Does the Patient Have Assistance After Yes Surgery Patient Discharge Plan Description Return Home Comment Pt advised overnight length of stay per surgeon. Lives on [address] Feels Safe in Current Environment Yes Been Physically Hurt or Threatened By a No Person in Current Environment Do you have thoughts of harming yourself None or others? Are you currently considering suicide? No Do you have a plan to hurt yourself or No Plan others? Do You Have Any Spiritual Beliefs That No May Affect Your HC Choices? Do You Have Any Cultural Practices That No May Affect Your HC Choices? Comment Agnostic Who Can We Speak to About Patient's Care Family, friends Identifying Code for Release of Patient Declines to issue Information Health Care Proxy/Next of Kin Serg () Health Care Proxy Emergency Contact Name Serg () Emergency Contact Advance Directives? No Power of Reproduction Machine Loader No PAC Instructions Do not shave/clip surgical site,Durable medical equipment ,Medications to take/avoid, Nasal antibiotic,No ETOH/ petroleum product on skin DOS, NPO,Post-op transportation,Pre -surgical wash,Sturdy shoes/ comfortable clothes,Do not bring valuables and remove jewelry
--- NOTE | 2021-04-02 12:37 | PC.NURSE ---
Discharge order received and patient ready for discharge to home with her . Cleared by physical therapy. Milton and aquacel remain CDI. IV removed intact. Discharge instructions and home care handouts reviewed with patient, she states understanding and has no further questions or concerns at this time. Escorted out via wheelchair with all her belongings to home. Instructed to call surgeons office with questions or concerns. Patient has her follow up appointment scheduled.
== END 2021-04-02 12:42 | disposition home or self-care (01) ==
LOC: OR 10:43 → AC 10:44
PROVIDERS: PCP Family Medicine; Referring Provider Orthopaedic Surgery; Visit Provider Orthopaedic Surgery
PROC: 0SRC0JZ Replacement of Right Knee Joint with Synthetic Substitute, Open Approach (ICD-10-PCS; CPT 27447; principal; 2021-04-01 12:30)
DX: M17.11 Unilateral primary osteoarthritis, right knee (principal); I10 Essential (primary) hypertension; K21.9 Gastro-esophageal reflux disease without esophagitis; K50.90 Crohn's disease, unspecified, without complications
CPT/HCPCS: 27447; 36415; 64450; 73560; 85014; 85018; 97161; C1776; C9290; J0171; J0690; J1100; J2270; J2704

== ENCOUNTER → 2021-11-14 10:04 | Outpatient (CLI) | payer MEDICARE, SELFPAY ==
[2021-04-01 15:59] VITALS: BMI 26.6
[2021-11-14 20:39] LABS: Add Manual Diff / Slide Review NO; Basophils Absolute Auto 100 /uL (0-100); Basophils Percent Auto 1.3 % (0-2); Eosinophils Absolute Auto 100 /uL (0-450); Eosinophils Percent Auto 2.4 % (2-4); Hematocrit 37.1 % (36-46); Hemoglobin 12.4 g/dL (12.0-16.0); Lymphocytes Absolute Auto 1000 /uL (1100-4500); Lymphocytes Percent Auto 18.5 % (25-40); Mean Corpuscular HGB Conc 33.6 % (30-36); Mean Corpuscular Hemoglobin 28.6 PG (26-34); Mean Corpuscular Volume 85.3 fL (80-100); Monocytes Absolute Auto 600 /uL (0-900); Monocytes Percent Auto 11.2 % (3-14); Neutrophils Absolute Auto 3500 /uL (1500-7000); Neutrophils Percent Auto 66.6 % (50-75); Platelet Count 223 X10^3/uL (150-400); Red Blood Cell Count 4.35 X10^6/uL (4.0-5.2); Red Cell Distribution Width 13.2 % (11.6-14.8); White Blood Cell Count 5.3 X10^3/uL (4.5-11.0)
[2021-11-14 21:00] LABS: Vitamin D 25 Hydroxy (D3) 70.9 ng/mL (30.0-100.0)
[2021-11-15 05:45] LABS: Blood Urea Nitrogen 18 mg/dL (7-17); Calcium 9.5 mg/dL (8.4-10.2); Carbon Dioxide 28 mmol/L (22-32); Chloride 95 mmol/L (98-107); Cholesterol 145 mg/dL (140-199); Estimated Glomerular Filt Rate > 60 mL/min (>60); Glucose 120 mg/dL (80-110); HDL Cholesterol 75 mg/dL (40-60); HEMOLYSIS < 15 (0-50); LDL Cholesterol Calculated 55 mg/dL (<100); Sodium 132 mmol/L (137-145); Triglycerides 76 mg/dL (35-150)
[2021-11-15 06:33] LABS: Vitamin B12 760 pg/mL (239-931)
== END ==
PROVIDERS: PCP Family Medicine; Visit Provider Family Medicine
DX: Z79.899 Other long term (current) drug therapy (principal); K50.90 Crohn's disease, unspecified, without complications; E78.5 Hyperlipidemia, unspecified; I10 Essential (primary) hypertension; K22.70 Barrett's esophagus without dysplasia
CPT/HCPCS: 80048; 80061; 82306; 82607; 85025

== ENCOUNTER → 2022-02-03 06:59 | Outpatient (CLI) | payer MEDICARE, SELFPAY ==
[2021-04-01 15:59] VITALS: BMI 26.6
[2022-02-03 21:16] LABS: COVID19 - ORCAS (NP or Nasal) Negative (Negative)
== END ==
PROVIDERS: PCP Family Medicine; Visit Provider Family Medicine
DX: Z01.812 Encounter for preprocedural laboratory examination (principal); Z20.822 Contact with and (suspected) exposure to COVID-19
CPT/HCPCS: C9803; U0003

== ENCOUNTER → 2022-03-03 06:50 | Outpatient (CLI) | payer MEDICARE, SELFPAY ==
[2022-02-03 16:51] VITALS: BMI 26.6
[2022-03-03 20:21] LABS: COVID19 - ORCAS (NP or Nasal) Negative (Negative)
== END ==
PROVIDERS: PCP Family Medicine; Visit Provider Family Medicine
DX: Z20.822 Contact with and (suspected) exposure to COVID-19 (principal); Z01.812 Encounter for preprocedural laboratory examination
CPT/HCPCS: C9803; U0003

== ENCOUNTER → 2022-08-12 09:33 | Outpatient (CLI) | payer MEDICARE, OTHER, SELFPAY ==
[2022-02-03 16:51] VITALS: BMI 26.6
[2022-08-12 19:47] LABS: Add Manual Diff / Slide Review NO; Basophils Absolute Auto 0 /uL (0-100); Basophils Percent Auto 0.8 % (0-2); Eosinophils Absolute Auto 200 /uL (0-450); Eosinophils Percent Auto 3.1 % (2-4); Hematocrit 38.3 % (36-46); Hemoglobin 12.8 g/dL (12.0-16.0); Lymphocytes Absolute Auto 1200 /uL (1100-4500); Lymphocytes Percent Auto 23.1 % (25-40); Mean Corpuscular HGB Conc 33.4 % (30-36); Monocytes Absolute Auto 600 /uL (0-900); Monocytes Percent Auto 11.8 % (3-14); Neutrophils Absolute Auto 3300 /uL (1500-7000); Neutrophils Percent Auto 61.2 % (50-75); Platelet Count 236 X10^3/uL (150-400); Red Blood Cell Count 4.41 X10^6/uL (4.0-5.2); Red Cell Distribution Width 13.8 % (11.6-14.8); White Blood Cell Count 5.4 X10^3/uL (4.5-11.0)
[2022-08-12 20:07] LABS: BUN Creatinine Ratio 31.1 (6-22); Blood Urea Nitrogen 19 mg/dL (7-17); C-Reactive Protein Quant 0.6 mg/dL (<1.0); Calcium 9.1 mg/dL (8.4-10.2); Carbon Dioxide 31 mmol/L (22-32); Chloride 92 mmol/L (98-107); Cholesterol 167 mg/dL (140-199); Estimated Glomerular Filt Rate > 60 mL/min (>60); Glucose 97 mg/dL (80-110); HDL Cholesterol 83 mg/dL (40-60); HEMOLYSIS < 15 (0-50); LDL Cholesterol Calculated 70 mg/dL (<100); Potassium 4.1 mmol/L (3.4-5.1); Sodium 129 mmol/L (137-145); Triglycerides 70 mg/dL (35-150)
[2022-08-12 21:13] LABS: Folate > 20.0 ng/mL (2.76-20.0); Vitamin B12 690 pg/mL (239-931)
[2022-08-14 03:07] LABS: Labcorp Hemoglobin (Hb) A1c 5.3 % (4.8-5.6)
== END ==
PROVIDERS: PCP Family Medicine; Visit Provider Family Medicine
DX: K50.90 Crohn's disease, unspecified, without complications (principal); I10 Essential (primary) hypertension; E78.5 Hyperlipidemia, unspecified; I25.10 Atherosclerotic heart disease of native coronary artery without angina pectoris; K22.70 Barrett's esophagus without dysplasia; M85.80 Other specified disorders of bone density and structure, unspecified site; R73.9 Hyperglycemia, unspecified
CPT/HCPCS: 80048; 80061; 82607; 82746; 83036; 85025; 86140

== ENCOUNTER → 2022-08-26 09:40 | Outpatient (CLI) | payer MEDICARE, OTHER, SELFPAY ==
[2022-02-03 16:51] VITALS: BMI 26.6
--- NOTE | 2022-08-26 10:02 | DI.DEXA.S_ITS ---
Bone Density Report Name: QUIANA GARCIA Age: 72 Sex: Female Ethnicity: White Date of : 1950 Indication: postmenopausal; screening for osteoporosis; Referring Provider: JARAD ELDER Study: Bone densitometry was performed. Exam Date: August 26, 2022 Accession number: [id number] Bone Density: Region BMD T-score Z-score Classification AP Spine(L1-L4) 1.182 1.2 3.4 Normal Femoral Neck (Left) 0.778 -0.6 1.2 Normal Total Hip (Left) 0.857 -0.7 0.8 Normal Femoral Neck (Right) 0.723 -1.1 0.7 Osteopenia Total Hip (Right) 0.820 -1.0 0.5 Normal Total Hip Mean 0.838 -0.9 0.7 Normal World Health Organization criteria for BMD impression classify patients as: Normal (T-score at or above -1.0), Osteopenia (T-score between -1.0 and -2.5), or Osteoporosis (T-score at or below -2.5). 10-year Fracture Risk(1): Major Osteoporotic Fracture 9.0% Hip Fracture 1.0% Reported Risk Factors: [place] (), Neck BMD=0.723, BMI=28.0 (1) FRAX(R) Version 3.08. Fracture probability calculated for an untreated patient. Fracture probability may be lower if the patient has received treatment. Previous Exams: -- Region Exam Age BMD T-score BMD Change BMD Change Date g/cm2 vs Baseline vs Previous -- AP Spine (L1-L4) 08/26/2022 72 1.182 1.2 -0.016 (-1.3%)# -0.016 (-1.3%)# 07/10/2020 70 1.198 1.4 Total Hip(Left) 08/26/2022 72 0.857 -0.7 -0.035 (-3.9%)# -0.035 (-3.9%)# 07/10/2020 70 0.892 -0.4 Total Hip(Right) 08/26/2022 72 0.820 -1.0 -0.002 (-0.2%)# -0.002 (-0.2%)# 07/10/2020 70 0.822 -1.0 -- *Denotes significance at 95% confidence level, LSC for AP Spine = 0.022 g/cm2, LSC for Total Hip = 0.027 g/cm2 # Denotes dissimilar scan types or analysis methods Impression: The patient has low bone mass, based on the Right Femoral Neck T-score. The patient has an estimated ten-year risk of hip fracture of 1% and an estimated ten-year risk of major fracture of 9%, based on the WHO FRAX algorithm. No significant bone loss was observed. Discussion: BONE DENSITY IS LOW AT ONE OR MORE SKELETAL SITES. This patient's lowest T-score is low at one or more skeletal sites. It meets the World Health Organization's (WHO) criteria for ?low bone mass? (T-score between -1.0 and -2.5). The patient's 10-year risk of fracture as calculated by FRAX is less than the threshold where pharmacological therapy is recommended by the National Osteoporosis Foundation (NOF). However, all treatment decisions require clinical judgment and consideration of individual patient factors, including patient preferences, comorbidities, previous drug use, risk factors not captured in the FRAX model (e.g., frailty, falls, vitamin D deficiency, increased bone turnover, interval significant decline in bone density) and possible under or overestimation of fracture risk by FRAX. The patient should follow a healthful lifestyle (good nutrition with adequate calcium and vitamin D, and appropriate weight-bearing exercise). Follow-Up: Consider repeating this study in 2 to 3 years to reassess this patient's status, or sooner if there is some new clinical indication. Reported by: BETHANY GUTIÉRREZ MD on 08/26/2022 11:06:00 AM.
== END ==
PROVIDERS: PCP Family Medicine; Referring Provider Family Medicine; Visit Provider Family Medicine
DX: Z78.0 Asymptomatic menopausal state (principal); M85.851 Other specified disorders of bone density and structure, right thigh; Z13.820 Encounter for screening for osteoporosis
CPT/HCPCS: 77080

== ENCOUNTER → 2022-09-08 09:34 | Outpatient (CLI) | payer MEDICARE, OTHER, SELFPAY ==
[2022-02-03 16:51] VITALS: BMI 26.6
[2022-09-08 19:17] LABS: BUN Creatinine Ratio 33.9 (6-22); Blood Urea Nitrogen 20 mg/dL (7-17); Calcium 9.3 mg/dL (8.4-10.2); Carbon Dioxide 29 mmol/L (22-32); Chloride 98 mmol/L (98-107); Estimated Glomerular Filt Rate > 60 mL/min (>60); Glucose 104 mg/dL (80-110); HEMOLYSIS 15 (0-50); Potassium 4.3 mmol/L (3.4-5.1); Sodium 133 mmol/L (137-145)
== END ==
PROVIDERS: PCP Family Medicine; Visit Provider Family Medicine
DX: E87.1 Hypo-osmolality and hyponatremia (principal)
CPT/HCPCS: 80048

== ENCOUNTER → 2023-06-25 09:40 | Outpatient (CLI) | payer MEDICARE, OTHER, SELFPAY ==
[2022-02-03 16:51] VITALS: BMI 26.6
[2023-06-25 19:26] LABS: Add Manual Diff / Slide Review NO; Basophils Absolute Auto 0 /uL (0-100); Basophils Percent Auto 0.8 % (0-2); Eosinophils Absolute Auto 200 /uL (0-450); Eosinophils Percent Auto 2.9 % (2-4); Hematocrit 40.8 % (36-46); Hemoglobin 13.7 g/dL (12.0-16.0); Lymphocytes Absolute Auto 1300 /uL (1100-4500); Lymphocytes Percent Auto 23.1 % (25-40); Mean Corpuscular HGB Conc 33.6 % (30-36); Mean Corpuscular Hemoglobin 29.4 PG (26-34); Mean Corpuscular Volume 87.6 fL (80-100); Monocytes Absolute Auto 600 /uL (0-900); Monocytes Percent Auto 10.3 % (3-14); Neutrophils Absolute Auto 3400 /uL (1500-7000); Neutrophils Percent Auto 62.9 % (50-75); Platelet Count 232 X10^3/uL (150-400); Red Blood Cell Count 4.66 X10^6/uL (4.0-5.2); Red Cell Distribution Width 13.4 % (11.6-14.8); White Blood Cell Count 5.4 X10^3/uL (4.5-11.0)
[2023-06-25 19:34] LABS: Hemoglobin A1C% w Est Avg Glu 5.3 % (4.0-6.0)
[2023-06-25 20:29] LABS: BUN Creatinine Ratio 26.2 (6-22); Blood Urea Nitrogen 16 mg/dL (7-17); Calcium 9.8 mg/dL (8.4-10.2); Carbon Dioxide 30 mmol/L (22-32); Chloride 101 mmol/L (98-107); Cholesterol 144 mg/dL (140-199); Estimated Glomerular Filt Rate > 60 mL/min (>60); Glucose 102 mg/dL (80-110); HDL Cholesterol 71 mg/dL (40-60); HEMOLYSIS < 15 (0-50); LDL Cholesterol Calculated 56 mg/dL (<100); Potassium 4.1 mmol/L (3.4-5.1); Sodium 137 mmol/L (137-145); Triglycerides 87 mg/dL (35-150)
== END ==
PROVIDERS: PCP Family Medicine; Visit Provider Family Medicine
DX: E78.2 Mixed hyperlipidemia (principal); R73.9 Hyperglycemia, unspecified; I25.10 Atherosclerotic heart disease of native coronary artery without angina pectoris; E87.1 Hypo-osmolality and hyponatremia; K50.90 Crohn's disease, unspecified, without complications; I10 Essential (primary) hypertension
CPT/HCPCS: 80048; 80061; 83036; 85025

== ENCOUNTER → 2023-09-28 08:30 | Outpatient (CLI) | payer MEDICARE, OTHER, SELFPAY ==
[2022-02-03 16:51] VITALS: BMI 26.6
[2023-09-28 19:48] LABS: Cholesterol 178 mg/dL (140-199); HDL Cholesterol 81 mg/dL (40-60); LDL Cholesterol Calculated 82 mg/dL (<100); Triglycerides 73 mg/dL (35-150)
== END ==
PROVIDERS: PCP Family Medicine; Referring Provider Family Medicine; Visit Provider Family Medicine
DX: E78.2 Mixed hyperlipidemia (principal)
CPT/HCPCS: 80061

== ENCOUNTER → 2023-11-12 09:13 | Outpatient (CLI) | payer MEDICARE, OTHER, SELFPAY ==
[2022-02-03 16:51] VITALS: BMI 26.6
[2023-11-12 20:32] LABS: BUN Creatinine Ratio 28.2 (6-22); Blood Urea Nitrogen 20 mg/dL (7-17); Calcium 10.4 mg/dL (8.4-10.2); Carbon Dioxide 29 mmol/L (22-32); Chloride 101 mmol/L (98-107); Cholesterol 197 mg/dL (140-199); Estimated Glomerular Filt Rate > 60 mL/min (>60); Glucose 109 mg/dL (80-110); HDL Cholesterol 82 mg/dL (40-60); HEMOLYSIS < 15 (0-50); LDL Cholesterol Calculated 97 mg/dL (<100); Sodium 137 mmol/L (137-145); Triglycerides 90 mg/dL (35-150)
[2023-11-12 21:02] LABS: TSH w/ Reflex to FT4 1.12 uIU/mL (0.47-4.68)
[2023-11-14 07:36] LABS: Thyroid Peroxidase Antibodies 12 IU/mL (0-34)
[2023-11-17 19:38] LABS: Thyroid Stimulating Immunoglob < 0.10 IU/L (0.00-0.55)
[2023-11-19 14:13] LABS: Calcium 10.3 mg/dL (8.7-10.3); Parathyroid Hormone, Intact 19 pg/mL (15-65)
== END ==
PROVIDERS: PCP Family Medicine; Referring Provider Family Medicine; Visit Provider Family Medicine
DX: E78.2 Mixed hyperlipidemia (principal); I25.10 Atherosclerotic heart disease of native coronary artery without angina pectoris; K22.70 Barrett's esophagus without dysplasia; K50.90 Crohn's disease, unspecified, without complications; I10 Essential (primary) hypertension
CPT/HCPCS: 80048; 80061; 82310; 83970; 84443; 84445; 86376

== ENCOUNTER → 2023-11-17 11:16 | Outpatient (CLI) | payer MEDICARE, OTHER, SELFPAY ==
[2022-02-03 16:51] VITALS: BMI 26.6
--- NOTE | 2023-11-17 10:30 | DI.US.S_ITS ---
PROCEDURE: US THYROID INDICATIONS: LUMP TECHNIQUE: Real-time scanning was performed of the thyroid gland, with image documentation. COMPARISON: None. FINDINGS: Thyroid: Right lobe measures 5. 3 x 1.5 x 1 point cm. Left lobe measures 5.5 x 1.5 x 1.8 cm. Isthmus is 0.2 cm thick. Echotexture is homogeneous. Nodule number: 1 Location: Left inferior Size: 1.8 x 0.9 x 1.2 cm. Composition: Solid Echogenicity: Hypoechoic Shape: wider than tall. Margins: Smooth Echogenic foci: None Total points: 4 ACR TI-RADS category: 4 IMPRESSION: Category 4 lesion as described above. No priors. Secondary to classification below, FNA is recommended. ACR TI-RADS definitions and recommendations: TI-RADS 1 (benign): 0 points. FNA not needed. TI-RADS 2 (not suspicious): 2 points. FNA not needed. TI-RADS 3 (mildly suspicious): 3 points. * FNA if 2.5 cm or larger, follow up if 1.5 cm or larger (at 1, 3, and 5 years). TI-RADS 4 (moderately suspicious): 4-6 points. * FNA if 1.5 cm or larger, follow up if 1 cm or larger (at 1, 2, 3, and 5 years). TI-RADS 5 (highly suspicious): 7 points or more. * FNA if 1 cm or larger, follow up if 0.5 cm or larger (every year for 5 years). Dictated by: Latha Barajas M.D. on 11/17/2023 at 13:17 Approved by: Latha Barajas M.D. on 11/17/2023 at 13:33
== END ==
PROVIDERS: PCP Family Medicine; Referring Provider Family Medicine; Visit Provider Family Medicine
DX: E04.1 Nontoxic single thyroid nodule
CPT/HCPCS: 76536

== ENCOUNTER → 2023-11-24 13:31 | Outpatient (CLI) | payer MEDICARE, OTHER, SELFPAY ==
[2022-02-03 16:51] VITALS: BMI 26.6
--- NOTE | 2023-11-24 | PATH_ITS ---
Note [facility] Accession Number: [id number] TESTS RESULT FLAG UNITS REF RANGE LAB Clinician Provided Cytology Information No. of containers..01 Other (Miscellaneous) No. of containers..02 Previously Prepared Cytology Slide Source: LEFT THYROID NODULE DIAGNOSIS: LEFT THYROID NODULE, FINE NEEDLE ASPIRATION. ADEQUATE FOR EVALUATION. FOLLICULAR GROUPS ARE PRESENT. BENIGN FOLLICULAR (GOITEROUS) NODULE ([place]ES[place] CATEGORY II), SEE COMMENT. COMMENT: MICROSCOPIC EXAMINATION REVEALS A MILDLY CELLULAR ASPIRATE, COMPOSED OF COLLOID AND FOLLICULAR GROUPS WITHOUT SIGNIFICANT CYTOLOGIC OR ARCHITECTURAL ATYPIA. THESE FINDINGS SUPPORT A BENIGN FOLLICULAR (GOITEROUS) NODULE. CORRELATION WITH CLINICAL AND RADIOGRAPHIC FINDINGS IS RECOMMENDED. ACCORDING TO THE [place] REPORTING SYSTEM FOR THYROID CYTOPATHOLOGY, THE RISK OF MALIGNANCY IN THE CATEGORY BENIGN-CATEGORY II IS 0-3%; THEREFORE RECOMMEND CONTINUED ULTRASOUND SURVEILLANCE WITH REPEAT FNA IF THE NODULE SIGNIFICANTLY INCREASES IN SIZE. Pathologist ICD10: 01 E07.9 Signed out by: Ghulam Perez MD, Pathologist NPI- [id number] Performed by: Kiran Montesinos, Shipping And Receiving Coordinator ([facility]) Gross description: 30 CC, PINK, CLEAR RECIEVED: IN CYTOLYT WITH 6 ALCOHOL FIXED AND 6 QUICK STAINED SLIDES ALSO 1 RNA VIAL WILL ON 04-28-2024.VO /VDU 11/25/2023 0706 Local FLAG LEGEND: L-Low Normal,H-High Normal,LL-Alert Low,HH-Alert High <-Panic Low,>-Panic High,A-Abnormal,AA-Critical Abnormal Performed at: [address] [facility], [place] [address] Kenn Scales MD, Performed at: [address] [facility] [address], [place], [place] [id number] MD Kenn Scales MD Phone: [phone]
--- NOTE | 2023-11-24 13:34 | DI.US.S_ITS ---
PROCEDURE: US FINE NEEDLE ASPIRATION INDICATIONS: Left thyroid nodule referred for evident TECHNIQUE: The indications, alternatives, benefits, risks, and complications of the procedure were explained to the patient. Written informed consent was obtained and placed in the chart. The thyroid region was examined sonographically and a site was chosen for ultrasound guided percutaneous sampling. The skin was prepared and draped in the usual fashion, and anesthetized with 1% lidocaine infiltrated from the skin down to the thyroid gland. Multiple passes were then performed, with contents emptied into an appropriate pathology specimen container. A bandage was applied to the area of access at completion of the study. COMPARISON: None. FINDINGS: Location(s) of lesion(s) sampled: Left thyroid inferior [place]: 25 and 22 gauge hypodermic needles. Number of passes: 6; 3 with 22 gauge and 3 with 25 gauge Medications: 1% lidocaine for local anaesthesia. Complications: None. IMPRESSION: Successful ultrasound-guided thyroid nodule fine needle aspiration, with cytology results pending. Please see chart below for management recommendations based on cytology results. [place] [facility] ReportingRecommendationsNon-diagnostic* Repeat US-guided FNA, with on-site cytology evaluation if possible. * Repeated non-diagnostic nodules without high suspicion US features: close observation vs surgical consult. * Consider surgery if nodule has high suspicion US features, grows >20% in 2 dimensions on followup, or patient has clinical risk factors for malignancy. Benign* If nodule has high suspicion US features: repeat US and FNA within 12 months. * If nodule has low to intermediate suspicion US features: repeat US at 12-24 months. If nodule grows (20% increase in at least 2 dimensions, with minimal increase of 2 mm or >50% change in volume), or development of new suspicious US features, then repeat FNA or continue followup. * If nodule has very low suspicion US features: followup US at >24 months. Atypia of undetermined significance, follicular lesion of undetermined significanceRepeat FNA, molecular testing, followup US, or surgical consult.Follicular neoplasm, suspicious for follicular neoplasmSurgical consult; also consider molecular testing. Suspicious for malignancySurgical consult.MalignantSurgical consult. Dictated by: Rylan Pitts M.D. on 11/24/2023 at 16:58 Approved by: Rylan Pitts M.D. on 11/24/2023 at 17:00
== END ==
PROVIDERS: PCP Family Medicine; Referring Provider Family Medicine; Visit Provider Family Medicine
DX: E04.1 Nontoxic single thyroid nodule (principal)
CPT/HCPCS: 10005

== ENCOUNTER → 2024-07-15 09:13 | Outpatient (CLI) | payer MEDICARE, OTHER, SELFPAY ==
[2022-02-03 16:51] VITALS: BMI 26.6
[2024-07-15 19:38] LABS: Add Manual Diff / Slide Review NO; Basophils Absolute Auto 0 /uL (0-100); Basophils Percent Auto 0.6 % (0-2); Eosinophils Absolute Auto 100 /uL (0-450); Eosinophils Percent Auto 1.7 % (2-4); Hematocrit 42.5 % (36-46); Hemoglobin 14.3 g/dL (12.0-16.0); Lymphocytes Absolute Auto 1600 /uL (1100-4500); Lymphocytes Percent Auto 24.6 % (25-40); Mean Corpuscular HGB Conc 33.7 % (30-36); Mean Corpuscular Hemoglobin 29.3 PG (26-34); Mean Corpuscular Volume 86.9 fL (80-100); Monocytes Absolute Auto 800 /uL (0-900); Monocytes Percent Auto 11.8 % (3-14); Neutrophils Absolute Auto 4000 /uL (1500-7000); Neutrophils Percent Auto 61.3 % (50-75); Platelet Count 260 X10^3/uL (150-400); Red Blood Cell Count 4.89 X10^6/uL (4.0-5.2); Red Cell Distribution Width 13.8 % (11.6-14.8); White Blood Cell Count 6.5 X10^3/uL (4.5-11.0)
[2024-07-15 19:48] LABS: C-Reactive Protein Quant < 0.5 mg/dL (<1.0); Cholesterol 142 mg/dL (140-199); HDL Cholesterol 76 mg/dL (40-60); LDL Cholesterol Calculated 47 mg/dL (<100); Triglycerides 96 mg/dL (35-150)
[2024-07-15 20:03] LABS: Vitamin D 25 Hydroxy (D3) 71.2 ng/mL (30.0-100.0)
[2024-07-15 20:16] LABS: TSH w/ Reflex to FT4 1.54 uIU/mL (0.47-4.68)
[2024-07-15 20:51] LABS: Folate > 20.0 ng/mL (2.76-20.0); Vitamin B12 603 pg/mL (239-931)
== END ==
PROVIDERS: PCP Family Medicine; Visit Provider Family Medicine
DX: I25.10 Atherosclerotic heart disease of native coronary artery without angina pectoris (principal); I10 Essential (primary) hypertension; K22.70 Barrett's esophagus without dysplasia; K50.90 Crohn's disease, unspecified, without complications; E87.1 Hypo-osmolality and hyponatremia; E07.9 Disorder of thyroid, unspecified; E78.2 Mixed hyperlipidemia
CPT/HCPCS: 80061; 82306; 82607; 82746; 84443; 85025; 86140

== ENCOUNTER → 2024-07-19 10:59 | Outpatient (CLI) | payer MEDICARE, OTHER, SELFPAY ==
[2022-02-03 16:51] VITALS: BMI 26.6
[2024-07-19 12:07] LABS: BUN Creatinine Ratio 32.9 (6-22); Blood Urea Nitrogen 25 mg/dL (7-17); Calcium 9.9 mg/dL (8.4-10.2); Carbon Dioxide 21 mmol/L (22-32); Chloride 98 mmol/L (98-107); Estimated Glomerular Filt Rate > 60 mL/min (>60); Glucose 105 mg/dL (80-110); HEMOLYSIS 22 (0-50); Potassium 4.5 mmol/L (3.4-5.1); Sodium 134 mmol/L (137-145)
== END ==
PROVIDERS: PCP Family Medicine; Visit Provider Family Medicine
DX: I25.10 Atherosclerotic heart disease of native coronary artery without angina pectoris (principal); E87.1 Hypo-osmolality and hyponatremia
CPT/HCPCS: 80048

== ENCOUNTER → 2024-08-23 09:12 | Outpatient (CLI) | payer MEDICARE, OTHER, SELFPAY ==
[2022-02-03 16:51] VITALS: BMI 26.6
--- NOTE | 2024-08-23 09:15 | DI.US.S_ITS ---
PROCEDURE: US THYROID INDICATIONS: LEFT THYROID NODULE TECHNIQUE: Real-time scanning was performed of the thyroid gland, with image documentation. COMPARISON: [facility], [place], US FINE NEEDLE ASPIRATION, 11/24/2023, 13:51. [facility], [place], US THYROID, 11/17/2023, 11:32. FINDINGS: Thyroid: Right lobe measures 5.1 x 2.0 x 2.1 cm. Left lobe measures 4.6 x 1.9 x 1.4 cm. Isthmus is 0.2 cm thick. Echotexture is homogeneous. Nodule number: 1 (prior FNA 11/24/2023) Location: Left inferior Size: 1.5 x 1.2 x 0.7 cm, previously 1.8 cm. Composition: Solid Echogenicity: Hypoechoic Shape: wider than tall. Margins: Smooth Echogenic foci: None Total points: 4 ACR TI-RADS category: 4 IMPRESSION: Stable TR4 left thyroid nodule. Recommend correlation with prior FNA results. ACR TI-RADS definitions and recommendations: TI-RADS 1 (benign): 0 points. FNA not needed. TI-RADS 2 (not suspicious): 2 points. FNA not needed. TI-RADS 3: 3 points. * FNA if 2.5 cm or larger, follow up if 1.5 cm or larger (at 1, 3, and 5 years). TI-RADS 4: 4-6 points. * FNA if 1.5 cm or larger, follow up if 1 cm or larger (at 1, 2, 3, and 5 years). TI-RADS 5: 7 points or more. * FNA if 1 cm or larger, follow up if 0.5 cm or larger (every year for 5 years). Approved by: Ko Apple M.D. on 08/23/2024 at 16:23
== END ==
LOC: US 09:13
PROVIDERS: PCP Family Medicine; Referring Provider Family Medicine; Visit Provider Family Medicine
DX: E04.1 Nontoxic single thyroid nodule (principal)
CPT/HCPCS: 76536

== ENCOUNTER → 2024-09-20 15:36 | Outpatient (CLI) | payer MEDICARE, OTHER, SELFPAY ==
[2022-02-03 16:51] VITALS: BMI 26.6
--- NOTE | 2024-09-20 16:04 | DI.MRI.S_ITS ---
Patient Name: QUIANA GARCIA date: 1950 Sex: F Attending Physician: [place] Indications: Date: 09/21/2024 09:49 At the request of: JARAD ELDER Procedure: MR breast BI wo/w con MR breast BI wo/w con: 09/20/2024. BI-RADS: 1 CLINICAL: 74-year old female for bilateral diagnostic breast MRI. Current reported family history of breast cancer: mother, sister and second sister. PRIOR EXAMS 01/12/2024, 01/09/2023, 12/31/2021. MRI TECHNIQUE Bilateral breast MRI was performed on a 1.5 Tiffanie magnet using a dedicated breast coil with mild compression. Axial T1 and T2 STIR sequences were obtained. Dynamic contrast enhanced VIBRANT fat-suppressed sequences were obtained. Delayed sagittal high resolution or sagittal reconstructed isotropic sequence was also obtained. Subtraction images and maximum intensity projection images were obtained. The study was evaluated using Goodoc software. Gadavist was injected intravenously: mL. IV Contrast: 20 ml ProHance. FIBROGLANDULAR TISSUE Bilateral: B. Scattered fibroglandular tissue. BACKGROUND PARENCHYMAL ENHANCEMENT Bilateral: Mild symmetrical background parenchymal enhancement. BREAST FINDINGS Right shoulder arthroplasty artifact. Bilateral: No suspicious mass, suspicious non-mass enhancement, or other concerning finding identified. Continued Report - Page 2 of 2 Patient Name: QUIANA GARCIA date: 1950 Sex: F Attending Physician: [place] Indications: Date: 09/21/2024 09:49 At the request of: JARAD ELDER Procedure: MR breast BI wo/w con IMPRESSION: * No evidence of malignancy. RECOMMENDATIONS Bilateral * Annual screening mammography. OVERALL ASSESSMENT CATEGORY BI-RADS-1: Negative. ELECTRONICALLY SIGNED: Vasile Shen M.D. on 09/21/2024 at 09:49:24 AM PT Interpreting Station ID: [id number]
== END ==
PROVIDERS: PCP Family Medicine; Referring Provider Family Medicine; Visit Provider Family Medicine
DX: R92.323 Mammographic fibroglandular density, bilateral breasts (principal); Z80.3 Family history of malignant neoplasm of breast
CPT/HCPCS: 77049; A9579